=== PATIENT | male | born 1995 | race Caucasian/White ===

== ENCOUNTER 2024-02-05 16:33 | Outpatient (CLI) | payer OTHER, SELFPAY ==
--- NOTE | ~2024-02-05 | XR_ITS ---
XR femur RT min 2V Ordering provider: Costa Segovia NP History: . M79.606 - Pain in leg, unspecified . Comparison: None. FINDINGS: BONES: No acute fracture or dislocation. JOINT SPACES: Normal. SOFT TISSUES: Normal. IMPRESSION: No acute osseous abnormality of the right femur. Reviewed, dictated and finalized at location A.
== END 2024-02-05 16:34 | disposition home or self-care (01) ==
LOC: MICIMG 16:34
DX: M79.604 Pain in right leg (principal)
CPT/HCPCS: 73552

== ENCOUNTER 2024-02-15 15:45 | Outpatient (CLI) | payer OTHER, SELFPAY ==
--- NOTE | ~2024-02-15 | XR_ITS ---
EXAMINATION: XR elbow LT 2V DATE: 02/15/2024 15:52 INDICATION: Lateral left elbow pain TECHNIQUE: Anteroposterior and lateral views of the left elbow were obtained. COMPARISON: None. FINDINGS: Alignment is normal. No fracture or joint effusion. Joint spaces are normal. Soft tissues are unremar kable. IMPRESSION: 1. Normal left elbow radiographs. Reviewed, dictated and finalized at location A.
== END 2024-02-15 15:46 | disposition home or self-care (01) ==
LOC: MICIMG 15:46
DX: M25.522 Pain in left elbow (principal)
CPT/HCPCS: 73070